=== PATIENT | female | born 1995 | race African-American/Black ===

== ENCOUNTER → 2017-04-23 | Outpatient (CLI) | payer OTHER ==
--- NOTE | 2017-04-24 05:56 | REP ---
Clinical: Pelvic pain . Technique: Transabdominal pelvic ultrasound followed by transvaginal examination for better evaluation of the endometrium and adnexa with color Doppler evaluation of the ovaries. Findings: Bladder is unremarkable and measures 8.6 x 6.9 x 5.5 cm . Normal anteverted uterus measures 7.0 x 3.5 x 4.3 cm . The endometrial complex measures 10 mm thickness. No discrete uterine or endometrial abnormalities are appreciated. Right ovary is normal in appearance and vascularity without evidence for torsion and measures 2.8 x 1.7 x 2.4 cm; R I = 0.61. Left ovary measures 17.8 x 11.5 x 17.5 cm and is dominated by a 16 cm multi septated cyst; R I = 0.66 . No pelvic fluid. Impression: 1. Normal uterus and right ovary. 2. 16 cm multi septated left ovarian cyst. No evidence for ovarian torsion. Signed by Adrian Plata MD 04/24/2017 05:47 A
== END ==
LOC: M RAD 13:55
PROVIDERS: ATTEND Obstetrics & Gynecology
DX: N83.202 Unspecified ovarian cyst, left side (principal)

== ENCOUNTER → 2017-05-04 | Outpatient (CLI) | payer OTHER ==
--- NOTE | 2017-05-04 14:13 | REP ---
SUPINE ABDOMEN: 05/04/2017. Comparison: Pelvic ultrasound 04/23/2017. Clinical history: Abdominal distension for 3 months. The patient states not . Findings: Supine image shows the gas pattern with stool scattered throughout the colon. The central abdomen and upper pelvis shows soft tissue density which corresponds to the ultrasound finding last week of a 16 cm multi-septated left ovarian cystic mass. No sign of obstruction. Bones unremarkable. No abnormal calcification. Impression: 1. Unremarkable gas pattern, soft tissue density mid abdomen and upper pelvis relates to the 16 cm multi-septated cyst or cystic mass in the left ovary on the pelvic ultrasound last week (04/23/2017). No abnormal calcifications or bony findings. Signed by Ray Damon MD 05/04/2017 06:18 P
== END ==
LOC: M WUC 12:21
PROVIDERS: ATTEND Physician Assistant
DX: R10.9 Unspecified abdominal pain (principal)

== ENCOUNTER → 2017-05-04 | Outpatient (REF) | payer OTHER | LOC: M SFHCLERA 10:50 | PROVIDERS: ATTEND Physician Assistant | DX: R30.0 Dysuria (principal) ==

== ENCOUNTER 2017-05-30 07:12 | Day surgery (SDC) | payer OTHER ==
[~2017-05-30] VITALS: Ht 157.5 cm; Wt 54.4 kg
[~2017-05-30 07:12] MED LIST: LR 1,000 ML IV ONE
[2017-05-30 07:50] LABS: MEAN CORPUSCULAR HEMOGLOBIN 32.2 pg (27.0-33.0); MEAN CORPUSCULAR HGB CONC 33.3 g/dl (32.0-36.5); MEAN CORPUSCULAR VOLUME 96.8 fl (80.0-96.0); RED CELL DISTRIBUTION WIDTH 11.9 % (11.5-14.5); WHITE BLOOD COUNT 3.6 K/mm3 (4.0-10.0)
[2017-05-30 08:12] LABS: CONTROL LINE HCG INT CTR LINE PRESENT
[2017-05-30] MEDS ORDERED: MIDAZOLAM INJ 2 MG/2 ML VIAL (J2250) As Ordered ONE (08:29)
[2017-05-30] MEDS ORDERED: fentaNYL 100 MCG/2 ML INJECTION (J3010) As Ordered ONE ×2 (08:29→09:50)
[2017-05-30] MEDS ORDERED: BUPIVACAINE HCL 0.25% 30 ML VIAL As Ordered ONE (08:52)
[2017-05-30] MEDS ORDERED: PROPOFOL 200 MG/20 ML VIAL As Ordered ONE (09:50)
[2017-05-30] MEDS ORDERED: LIDOCAINE 2% INJ 100 MG/5 ML SDV (FOR ANES.) As Ordered ONE (09:50)
[2017-05-30] MEDS ORDERED: ePHEDrine SULFATE 25 MG/5 ML(5MG/ML) SYRINGE As Ordered ONE (10:21)
[2017-05-30] MEDS ORDERED: ONDANSETRON 4MG/2ML VIAL (J2405) As Ordered ONE ×2 (10:41→13:24)
[2017-05-30] MEDS ORDERED: NEOSTIGMINE 1MG/ML 5 ML SYRINGE (J2710) As Ordered ONE (10:41)
[2017-05-30] MEDS ORDERED: KETOROLAC 60 MG/2 ML VIAL (J1885) As Ordered ONE (10:41)
[2017-05-30] MEDS ORDERED: GLYCOPYRROLATE INJ 0.2 MG/ML 2 ML VIAL As Ordered ONE (10:41)
[2017-05-30] MEDS ORDERED: dexameTHASONE 4 MG/ML 1ML VIAL (J1100) As Ordered ONE (10:41)
[2017-05-30] MEDS ORDERED: LR 1,000 ML IV SCH (11:30)
[2017-05-30] MEDS ORDERED: ONDANSETRON 4MG/2ML VIAL (J2405) IV PRN (11:30)
[2017-05-30] MEDS: PERCOCET 5MG/325MG TAB PO PRN ×2 (11:39→14:10)
[2017-05-30] MEDS ORDERED: PERCOCET 5MG/325MG TAB PO PRN (11:45)
[2017-05-30] MEDS: fentaNYL 100 MCG/2 ML INJECTION (J3010) IV PRN ×2 (11:57→12:02)
[2017-05-30 15:20] VITALS: BP 111/60
[2017-05-30] MEDS ORDERED: KETOROLAC 30 MG/ML VIAL (J1885) IV SCH (17:00)
--- NOTE | 2017-06-11 07:34 | RO ---
DATE OF PROCEDURE: 05/30/2017 PREOPERATIVE DIAGNOSIS: Left ovarian cyst. POSTOPERATIVE DIAGNOSIS: Left ovarian cyst. PROCEDURE PERFORMED: Laparoscopic left salpingo-oophorectomy. SURGEON: Bettie Aviles MD [employer] [employer] SPECIALIST: Jeffery Drummond MD ANESTHESIA: General endotracheal anesthesia. ESTIMATED BLOOD LOSS: 10 mL INFECTION CALCIFICATION: I. SPECIMEN: Left ovary and fallopian tube with cyst. FINDINGS: Approximately with 7 cm left ovarian cyst; otherwise, normal appearing pelvic anatomy including right adnexa and uterus. DESCRIPTION OF OPERATION: After informed consent was obtained and written was reviewed, the patient was brought to the operating room where general endotracheal anesthesia was obtained. She was then placed in lithotomy position and was prepped and draped in normal sterile fashion. Time-out in the operating room was then performed, identifying the patient, procedure to be performed, as well as drug allergies. A bivalve speculum was then placed, revealing the cervix. The anterior lip of the cervix was grasped with a single-tooth tenaculum. Hulka tenaculum was then advanced into cervix os for means to manipulate the uterus. The single-tooth tenaculum was then removed. Catalan catheter was then placed and set to gravity. Attention was then turned to the patient's abdomen, where 0.25% Marcaine was infused in the umbilical region. This area was incised and carried down to the level of the fascia. The fascia was then identified, was tented and excised, revealing the left ovarian cyst, at which time the left ovarian cyst was then placed in traction using Kochers and brought to the level of the incision where an incision was made and there was intra-abdominal drainage of the ovarian cyst. I removed approximately 2200 mL of fluid. Once the ovarian cyst was decompressed, a 15 mm GelPort was then placed through this incision. The laparoscope was then placed, revealing intra-abdominal placement. An additional accessory port was placed to the right side of the umbilicus in the abdomen. This area was infused with 0.25% Marcaine. An incision was made in this area, and a 5 mm trocar was advanced through this incision under direct visualization. The abdomen was then surveyed with the above noted finding. Next the left adnexa was then inspected and was placed in traction. Utilizing the Harmonic A scalpel device, the infundibulopelvic ligament of the right adnexa was cauterized and ligated with good hemostasis noted. The utero-ovarian ligament was then cauterized and ligated with good hemostasis noted. The umbilical GelPort was then removed. The specimen was brought to the level of the umbilical incision and with some morcellation, this specimen was brought through the umbilical port site. The trocar GelPort was then placed back through the umbilicus. The abdomen was irrigated and suctioned. Surgical sites were inspected and noted to be hemostatic. The pneumoperitoneum was then released. The trocars were then removed. The fascia of the umbilical port site was closed with #0 Vicryl. The two skin incisions were closed with the #4-0 Monocryl and dressed with Dermabond. The Hulka tenaculum was then removed. Tenaculum sites were inspected and noted to be hemostatic. Catalan catheter was removed. The patient was taken out of lithotomy position and taken to recovery in stable condition. Counts were correct. Urine output totaled 300 mL.
== END 2017-05-30 15:55 | disposition home or self-care (01) ==
LOC: M SDC 07:12
PROVIDERS: ATTEND Obstetrics & Gynecology
DX: N83.292 Other ovarian cyst, left side (principal); Z88.0 Allergy status to penicillin
CPT/HCPCS: 36415; 58661; 84703; 85027; 86850; 86900; 86901; 88305; J1100; J1885; J2250; J2405; J2710; J3010

== ENCOUNTER → 2017-06-05 | Outpatient (REF) | payer OTHER | LOC: M LAB REF 17:14 | PROVIDERS: ATTEND Obstetrics & Gynecology | DX: R30.0 Dysuria (principal) ==